=== PATIENT | female | born 1940 | race Caucasian/White ===

== ENCOUNTER 2022-06-21 23:48 | Inpatient (IN) | payer MEDICARE ==
[2022-06-21] MEDS ORDERED: Promethazine HCl 25 MG/ML VIAL ONE (23:59)
[2022-06-22] MEDS ORDERED: Fentanyl 100 MCG/2 ML VIAL ONE (00:24)
[2022-06-22] MEDS ORDERED: PROPOFOL 20 ML ONE (00:24)
[2022-06-22] MEDS ORDERED: Ketorolac Tromethamine 30 MG/ML VIAL ONE (00:47)
[2022-06-22 01:05] LABS: #Basophils 0.1 10x3/uL (0.0-0.2); #Eosinphils 0.1 10x3/uL (0.0-0.5); #Monocytes 0.9 10x3/uL (0.0-1.1); #Neutrophils 11.1 10x3/uL (1.5-8.4); %Basophils 0.6 % (0.0-2.0); %Eosinophils 0.4 % (0.0-6.0); %Lymphocytes 11.9 % (18.0-47.0); %Monocytes 6.1 % (0.0-10.0); %Neutrophils 80.3 % (40.0-75.0); Hemoglobin 12.7 g/dL (12.0-15.5); Mean Corpuscular HGB CONC 33.8 g/dL (32.0-36.0); Mean Corpuscular Hemoglobin 30.3 pg (27.0-33.0); Mean Corpuscular Volume 89.7 fl (81.6-98.3); Mean Platelet Volume 9.9 fl (7.4-10.4); Platelet Count 243 10x3/uL (150-450); RBC Distribution Width 11.9 % (11.5-14.5); Red Blood Cell (RBC) Count 4.19 10x6/uL (3.90-5.03); White Blood Cell (WBC) Count 13.9 10x3/uL (3.5-10.5)
[2022-06-22 01:09] LABS: ALT (SGPT) 9 U/L (8-55); AST (SGOT) 16 U/L (5-34); Alkaline Phosphatase 78 U/L (40-110); Anion Gap 15 mmol/L (10-20); BUN (Urea Nitrogen) 14 mg/dL (9.8-20.1); Bilirubin, Total 0.5 mg/dL (0.2-1.2); Calc. Creatinine Clearance 0 mL/min (70-130); Carbon Dioxide 25 mmol/L (23-31); Chloride 106 mmol/L (98-107); Estimated GFR 66; Globulin 2.8 g/dL (2.4-3.5); Glucose 113 mg/dL (83-110); Potassium 4.6 mmol/L (3.5-5.1); Protein, Total 6.8 g/dL (5.8-8.1); Sodium 141 mmol/L (136-145)
[2022-06-22 01:11] LABS: SARS-CoV-2 NAA Rapid Test Not Detected (NotDetected)
[2022-06-22] MEDS ORDERED: Ondansetron PF 4 MG/2 ML Vial IVP PRN (02:13)
[2022-06-22] MEDS ORDERED: HYDROcodone/Acetaminophen 5/325 mg Tablet PO PRN (02:13)
[2022-06-22] MEDS ORDERED: Guaifenesin DM 100-10/5 ML UDCUP PO PRN (02:13)
[2022-06-22] MEDS ORDERED: Zolpidem Tartrate 5 MG TAB PO PRN (02:13)
[2022-06-22] MEDS ORDERED: Acetaminophen 325 MG TAB PO PRN (02:13)
[2022-06-22] MEDS ORDERED: Senokot S 8.6-50 MG TAB PO PRN (02:13)
[2022-06-22] MEDS ORDERED: Calcium Carbonate 500 MG ChewTAB PO PRN (02:13)
[2022-06-22] MEDS ORDERED: Morphine 4 MG/ML VIAL SLOW IVP PRN (02:15)
[2022-06-22] MEDS ORDERED: Morphine 2 MG/ML VIAL SLOW IVP PRN (02:15)
[2022-06-22] MEDS ORDERED: cefTRIAXone\\ROCEPHIN 1 GM VIAL ONE (03:05)
[2022-06-22] MEDS: Lactated Ringer's 1,000 ML IV SCH ×2 (03:19→11:04)
[2022-06-22] MEDS ORDERED: cefTRIAXone\\ROCEPHIN 1 GM in Sodium Chloride 0.9% 100 ML IVPB SCH (05:15)
[2022-06-22] MEDS ORDERED: Famotidine/PF 20 mg/2ml Vial ONE (07:48)
[2022-06-22] MEDS ORDERED: Cholecalciferol 1,000 UNITS (25 MCG) TAB ONE (07:51)
[2022-06-22] MEDS ORDERED: HYDROcodone/Acetaminophen 5/325 mg Tablet ONE (08:58)
[2022-06-22] MEDS ORDERED: Polyethylene Glycol 3350 17 GM Packet PO SCH (09:00)
[2022-06-22] MEDS ORDERED: Enoxaparin Sodium 40 MG/0.4 ML SYRINGE SC SCH (09:00)
[2022-06-22] MEDS ORDERED: Famotidine/PF 20 mg/2ml Vial SLOW IVP SCH (09:00)
[2022-06-22] MEDS ORDERED: Cholecalciferol 1,000 UNITS (25 MCG) TAB PO SCH (09:00)
[2022-06-22 09:37] VITALS: BMI 21.9
[2022-06-22 10:36] VITALS: BP 156/65; TEMP 98.1
[2022-06-22 10:50] LABS: #Basophils 0.1 10x3/uL (0.0-0.2); #Eosinphils 0.1 10x3/uL (0.0-0.5); #Monocytes 0.8 10x3/uL (0.0-1.1); #Neutrophils 5.2 10x3/uL (1.5-8.4); %Basophils 0.8 % (0.0-2.0); %Eosinophils 0.9 % (0.0-6.0); %Lymphocytes 28.4 % (18.0-47.0); %Monocytes 9.6 % (0.0-10.0); %Neutrophils 59.8 % (40.0-75.0); Hemoglobin 12.3 g/dL (12.0-15.5); Mean Corpuscular HGB CONC 33.3 g/dL (32.0-36.0); Mean Corpuscular Hemoglobin 30.3 pg (27.0-33.0); Mean Corpuscular Volume 90.9 fl (81.6-98.3); Mean Platelet Volume 9.8 fl (7.4-10.4); Platelet Count 247 10x3/uL (150-450); RBC Distribution Width 12.2 % (11.5-14.5); Red Blood Cell (RBC) Count 4.06 10x6/uL (3.90-5.03); White Blood Cell (WBC) Count 8.7 10x3/uL (3.5-10.5)
[2022-06-22 13:56] LABS: Bilirubin Neg (Negative); Blood, Urine 10 (Negative); Clarity Clear (Clear); Glucose, Urine (Dipstick) Normal (Negative); Ketone, Urine Negative (Negative); Leukocyte 25 (Negative); Nitrite Negative (Negative); Protein, Urine (Dipstick) Negative (Neg-Trace); Specific Gravity, Urine 1.015 (1.005-1.030); Urobilinogen Normal mg/dL (Less than 2)
[2022-06-22 14:09] LABS: Bacteria/HPF None Seen HPF (None Seen); RBC/HPF 0-3 HPF (0-3); Squamous Epithelial 0-3 HPF (0-3); WBC/HPF 0-3 HPF (0-3)
[2022-06-23] MEDS ORDERED: cefTRIAXone\\ROCEPHIN 1 GM in Sodium Chloride 0.9% 100 ML IVPB SCH (09:00)
== END 2022-06-22 13:15 | disposition short-term general hospital (02) | DRG 563 ==
LOC: CSHERS 23:48 → CSHERHOLD 06-22 03:01 → CSHTELE 06-22 10:09
PROVIDERS: ADMIT Student in an Organized Health Care Education/Training Program; ATTEND Family Medicine
PROC: 2W3RX1Z Immobilization of Left Lower Leg using Splint (ICD-10-PCS; principal; 2022-06-22)
DX: S82.302A Unspecified fracture of lower end of left tibia, initial encounter for closed fracture (principal); N39.0 Urinary tract infection, site not specified; S82.832A Other fracture of upper and lower end of left fibula, initial encounter for closed fracture; W19.XXXA Unspecified fall, initial encounter; E78.5 Hyperlipidemia, unspecified; F32.A Depression, unspecified; D72.829 Elevated white blood cell count, unspecified; Z20.822 Contact with and (suspected) exposure to COVID-19; Y92.003 Bedroom of unspecified non-institutional (private) residence as the place of occurrence of the external cause; Z79.899 Other long term (current) drug therapy; Z90.49 Acquired absence of other specified parts of digestive tract; Z98.890 Other specified postprocedural states; Z87.891 Personal history of nicotine dependence; Z90.710 Acquired absence of both cervix and uterus
CPT/HCPCS: 27781; 36415; 80053; 81001; 82306; 85025; 93005; 96365; 96367; 96375; 99152; J0696; J1885; J2550; J2704; J3010; J7120; S0028; U0002

== ENCOUNTER 2024-04-28 11:27 | Outpatient (CLI) | payer MEDICARE | END 2024-04-28 11:28 | disposition home or self-care (01) | LOC: CSHMAMMO 11:27 | PROVIDERS: ATTEND Student in an Organized Health Care Education/Training Program | DX: M81.0 Age-related osteoporosis without current pathological fracture (principal) | CPT/HCPCS: 77080 ==